=== PATIENT | male | born 1965 | race Caucasian/White ===

== ENCOUNTER 2018-10-09 04:40 | Emergency (ER) | payer OTHER ==
[~2018-10-09] VITALS: Ht 182.9 cm; Wt 119.0 kg
[2018-10-09 04:46] VITALS: BP 141/92; PULSE 72; RESP 17; Ht 182.9 cm; Wt 119.0 kg
[2018-10-09] MEDS ORDERED: KETOROLAC 15 MG INJ IM STA (05:46)
[2018-10-09] MEDS ORDERED: CYCLOBENZAPRINE 10 MG TAB PO ONE (06:00)
[2018-10-09] MEDS ORDERED: IBUP-1542 PO (06:09)
[2018-10-09] MEDS ORDERED: CYCL10TA7 PO (06:09)
--- NOTE | 2018-10-09 06:20 | ERD ---
ER Documentation Chief Complaint Chief Complaint C/O LT SIDED MEDIAL BACK PAIN SINCE YESTERDAY HPI This is a 53-year-old prediabetic male who presents to the ED complaining of left thoracic pain since yesterday. 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 He states his back pain is worse when lying down and when taking a deep breath. Denies any associated chest pain or shortness of breath. Denies any bowel or bladder incontinence. Denies any fevers or chills. Denies any numbness or tingling down the lower extremities. No direct trauma reported. No other complaints. ROS All systems reviewed and are negative except as per history of present illness. Medications Home Meds Active Scripts Cyclobenzaprine Hcl* (Cyclobenzaprine Hcl*) 10 Mg Tablet, 10 MG PO TID for spasm, #15 TAB Prov:FANNIE GARZA-C 10/09/18 Ibuprofen* (Motrin*) 600 Mg Tab, 600 MG PO Q6H PRN for PAIN AND OR ELEVATED TEMP, #30 TAB Prov:FANNIE GARZA PA-C 10/09/18 PMhx/Soc History of Surgery: No Anesthesia Reaction: No Hx Neurological Disorder: No Hx Respiratory Disorders: No Hx Cardiac Disorders: No Hx Psychiatric Problems: No Hx Miscellaneous Medical Probl: No Hx Alcohol Use: No Hx Substance Use: No Hx Tobacco Use: No Smoking Status: Never smoker Physical Exam Vitals Vital Signs Date Temp Pulse Resp B/P (MAP) Pulse Ox O2 O2 Flow FiO2 Time Delivery Rate 10/09/18 97.3 72 17 141/92 98 04:46 (108) Physical Exam Const: No acute distress Head: Atraumatic Eyes: Normal Conjunctiva ENT: Normal External Ears, Nose and Mouth. Neck: Full range of motion. No meningismus. Resp: Clear to auscultation bilaterally Cardio: Regular rate and rhythm, no murmurs Abd: Soft, non tender, non distended. Normal bowel sounds Skin: No petechiae or rashes Back: + Mild left parathoracic spinal tenderness. No midline tenderness. No step-offs. Negative straight leg raise. Ext: No cyanosis, or edema Neur: Awake and alert Psych: Normal Mood and Affect Results 24 hrs Current Medications Medications Dose Sig/Terri Start Time Status Last (Trade) Ordered Route PRN Stop Time Admin Dose Reason Admin 10 mg ONCE ONCE 10/09/18 DC Cyclobenzapri PO 06:00 ne HCl 10/09/18 06:00 (Flexeril) Ketorolac 15 mg ONCE STAT 10/09/18 DC 10/09/18 Tromethamine IM 05:46 05:51 (Toradol) 10/09/18 05:47 Procedures/MDM ED COURSE: The patient was given IM Toradol The medication was well tolerated and the patient had market improvement in symptoms. The patient remained stable throughout ED course. 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 There are no focal neurological deficits on physical exam. Advanced imaging was deferred as symptoms are likely musculoskeletal in origin. Back pain improved status post IM Toradol. I have low suspicion for epidural abscess, cauda equina, cord compression, spinal tumor/mass or compression fracture. Patient will be treated conservatively with appropiate pain control. Follow up with PCP in 1 week, otherwise return to the ED for any new or worsening symptoms. PRESCRIPTIONS: Ibuprofen, cyclobenzaprine SPECIALIST FOLLOW UP RECOMMENDED: None Patient has been advised to follow up with primary care in 1-2 days. Blood Pressure Assessment: Patient's blood pressure was elevated (>120/80) but appears stable without evidence of hypertension emergency or urgency. The pat ient was counseled about the risks of hypertension and urged to pursue outpatient monitoring and therapy within a week with their primary care physician. Departure Diagnosis: Primary Impression: Strain of thoracic region Encounter type: initial encounter Qualified Codes: S29.019A - Strain of muscle and tendon of unspecified wall of thorax, initial encounter Condition: Stable Patient Instructions: Thoracic Strain Referrals: [facility] 7 a.m.- 11 p.m. Every Day of the Week NO APPOINTMENT OR AUTHORIZATION NEEDED Additional Instructions: Call your primary care doctor TOMORROW for an appointment during the next 2-4 days and bring all the information and medications prescribed. If the symptoms get worse and your provider is unavailable, return to the Emergency Department immediately. FANNIE GARZA PA-C October 09, 2018 06:20
== END 2018-10-09 06:41 | disposition left against medical advice (07) ==
LOC: FTE 04:40
DX: S29.012A Strain of muscle and tendon of back wall of thorax, initial encounter (principal); X58.XXXA Exposure to other specified factors, initial encounter; Y92.9 Unspecified place or not applicable
CPT/HCPCS: 96372; 99284; J1885